=== PATIENT | female | born 1955 | race Caucasian/White ===

== ENCOUNTER 2019-08-14 14:17 | Emergency (ER) | payer OTHER, SELFPAY ==
[2019-08-14 14:20] VITALS: BP 154/102; PULSE 110; RESP 101; TEMP 36.6; O2SAT 96; BMI 21.2
[2019-08-14 16:09] VITALS: BP 153/115; PULSE 90; RESP 20; O2SAT 98
--- NOTE | 2019-08-14 17:17 | ED.GENADULT ---
HPI - General Adult <Suzanne Andrade PA-C - Last Filed: 08/14/19 21:01> General Chief complaint: Hypertension Stated complaint: elevated blood pressure, sent by doctor Time Seen by Provider: 08/14/19 17:10 Source: patient Mode of arrival: Ambulatory Limitations: no limitations History of Present Illness HPI narrative: This 64-year-old female states that she is feeling well, but was sent for evaluation by oral surgeon for elevated blood pressure noted in his office (unable to be seen by PCP and they initially sent to the walk-in clinic). She states initially her blood pressure was 159/104, then after discussing needed procedures and extractions was 209/120. She states her blood pressure has been in the 150/100 range at home recently however she has not taken it when she is relaxed. She states that she is monitoring this with her PCP and pain specialist. She states that she feels ?great? today, denies any chest pain, headache, vision change, vomiting or other new complaints today. She states that she does have anxiety and feels like her medication doesn't work as well as it could and thinks that could contribute Related Data Home Medications Medication Instructions Recorded Confirmed methadone 25 mg PO DAILY #0 06/11/11 08/14/19 hydrocodone-acetaminophen [[place]] 1 tab PO QID #0 tab 04/03/16 08/14/19 sertraline 100 mg PO QDAY #0 tab 04/03/16 08/14/19 Allergies Allergy/AdvReac Type Severity Reaction Status Date / Time No Known Drug Allergies Allergy Verified 08/14/19 14:32 Review of Systems <Suzanne Andrade PA-C - Last Filed: 08/14/19 21:01> Review of Systems ROS Unobtainable: All systems reviewed & are unremarkable except as noted in HPI and below Patient History <Suzanne Andrade PA-C - Last Filed: 08/14/19 21:01> Medical History (Updated 08/14/19 @ 18:38 by Suzanne Andrade PA-C) Anxiety disorder (Chronic) Degenerative disc disease (Chronic) Scoliosis (Chronic) Surgical History (Updated 08/14/19 @ 18:38 by Suzanne Andrade PA-C) No pertinent past surgical history (Chronic) Social History Smoking Status: Current every day smoker Smoking Status: Current every day smoker tobacco type: cigarettes alcohol intake frequency: 3 or more drinks per day Substance Use Type: marijuana Exam <Suzanne Andrade PA-C - Last Filed: 08/14/19 21:01> Narrative Exam Narrative: GENERAL APPEARANCE: Patient sitting comfortably, appears well. NECK/THYROID: Neck supple, no JVD. LUNGS: Clear to auscultation bilaterally. HEART: Regular rate and rhythm without murmur, normal S1, S2, no S3 or S4. EXTREMITIES: No cyanosis or edema NEUROLOGIC: Alert and oriented, normal speech, gait and coordination. Initial Vital Signs Initial Vital Signs: Vital Signs Temperature 97.9 F 08/14/19 14:20 Pulse Rate 110 H 08/14/19 14:20 Respiratory Rate 101 H 08/14/19 14:20 Blood Pressure 154/102 H 08/14/19 14:20 Pulse Oximetry 96 08/14/19 14:20 <Sun Deluca MD - Last Filed: 08/18/19 12:20> Initial Vital Signs Initial Vital Signs: Vital Signs Temperature 97.9 F 08/14/19 14:20 Pulse Rate 110 H 08/14/19 14:20 Respiratory Rate 101 H 08/14/19 14:20 Blood Pressure 154/102 H 08/14/19 14:20 Pulse Oximetry 96 08/14/19 14:20 Course <Suzanne Andrade PA-C - Last Filed: 08/14/19 21:01> Course Additional Information: Patient is feeling well today. She does have moderately elevated blood pressures, actually improved here in the department versus her home readings though she has not checked at rest. No proteinuria noted. Advised she needs to return if any new symptoms such as chest pain vision change, severe headache, etc. and she is agreeable. Otherwise advised check few home blood pressures when relaxed and follow-up with PCP next week and she is also agreeable with this plan. Orders Ordered: ED Orders 08/14/19 14:41 EKG-12 Lead Stat Vital Signs Vital signs: Vital Signs - 8 hr 08/14/19 14:20 08/14/19 16:09 08/14/19 17:19 Temperature 97.9 F Pulse Rate 110 H 90 87 Respiratory Rate 101 H 20 Blood Pressure 154/102 H Blood Pressure [Left Arm] 153/115 H 137/111 H Pulse Oximetry 96 98 98 08/14/19 17:32 Temperature Pulse Rate 89 Respiratory Rate Blood Pressure Blood Pressure [Left Arm] 175/99 H Pulse Oximetry 97 <Sun Deluca MD - Last Filed: 08/18/19 12:20> Orders Ordered: ED Orders 08/14/19 14:41 EKG-12 Lead Stat Vital Signs Vital signs: Vital Signs - 8 hr 08/14/19 14:20 08/14/19 16:09 08/14/19 17:19 Temperature 97.9 F Pulse Rate 110 H 90 87 Respiratory Rate 101 H 20 Blood Pressure 154/102 H Blood Pressure [Left Arm] 153/115 H 137/111 H Pulse Oximetry 96 98 98 08/14/19 17:32 Temperature Pulse Rate 89 Respiratory Rate Blood Pressure Blood Pressure [Left Arm] 175/99 H Pulse Oximetry 97 Medical Decision Making <Suzanne Andrade PA-C - Last Filed: 08/14/19 21:01> Lab Data Labs: Urine Dip Bedside Urine Glucose Negative Bedside Urine Bilirubin - Negative Bedside Urine Ketone - Negative Urine Specific [place] 1.010 Bedside Urine Occult Blood - Negative Bedside Urine pH 6.0 Bedside Urine Protein - Negative Bedside Urine Urobilinogen - Negative Bedside Urine Nitrite - Negative Bedside Urine Leukocytes - Negative Esterase Point of care testing: Urine Dip Bedside Urine Glucose Negative Bedside Urine Bilirubin - Negative Bedside Urine Ketone - Negative Urine Specific [place] 1.010 Bedside Urine Occult Blood - Negative Bedside Urine pH 6.0 Bedside Urine Protein - Negative Bedside Urine Urobilinogen - Negative Bedside Urine Nitrite - Negative Bedside Urine Leukocytes - Negative Esterase ECG Data Attestation: I personally reviewed and interpreted this ECG as follows: (Normal sinus rhythm, rate 96, left bundle branch block) <Sun Deluca MD - Last Filed: 08/18/19 12:20> Lab Data Labs: Urine Dip Bedside Urine Glucose Negative Bedside Urine Bilirubin - Negative Bedside Urine Ketone - Negative Urine Specific [place] 1.010 Bedside Urine Occult Blood - Negative Bedside Urine pH 6.0 Bedside Urine Protein - Negative Bedside Urine Urobilinogen - Negative Bedside Urine Nitrite - Negative Bedside Urine Leukocytes - Negative Esterase Point of care testing: Urine Dip Bedside Urine Glucose Negative Bedside Urine Bilirubin - Negative Bedside Urine Ketone - Negative Urine Specific [place] 1.010 Bedside Urine Occult Blood - Negative Bedside Urine pH 6.0 Bedside Urine Protein - Negative Bedside Urine Urobilinogen - Negative Bedside Urine Nitrite - Negative Bedside Urine Leukocytes - Negative Esterase Discharge Plan Departure Patient Disposition: Home Clinical Impression: Hypertension Qualifiers: Hypertension type: essential hypertension Qualified Code(s): I10 - Essential (primary) hypertension Discharge Date/Time: 08/14/19 18:41 Instructions: DI for High Blood Pressure Activity Restrictions/Additional Instructions: Your blood pressure here today appears to be equal or lower than what you have been seeing at home recently. I suspect your elevated reading at the oral surgeon was related to anxiety when you were told about the surgery that you would need. Since you are feeling well, you don't need any treatment right now, but as we talked about you should set up a follow-up visit with your primary care provider next week to review whether to start any blood pressure medication and whether adjusting or changing or anxiety medication could help with this. In the interim, please check a few blood pressures at home when you are seated and relaxed with your feet flat on the floor for at least 15 minutes. Check a few readings at different times of day before your next visit so you can review them with Dr. Araujo. As we talked about, you should return in the interim should you have any new symptoms such as severe headache, vision change, chest pain, etc.. Prescriptions: No Action methadone 10 MG tablet 25 mg PO DAILY Qty: 0 RF: 0 sertraline 100 MG tablet 100 mg PO QDAY Qty: 0 RF: 0 hydrocodone-acetaminophen [[place]] 10 MG/325 MG tablet 1 tab PO QID Qty: 0 RF: 0 Referrals: Edward Littlejohn MD [Non-Staff] -
[2019-08-14 17:19] VITALS: BP 137/111; PULSE 87; O2SAT 98
[2019-08-14 17:32] VITALS: BP 175/99; PULSE 89; O2SAT 97
== END 2019-08-14 18:41 | disposition home or self-care (01) ==
PROVIDERS: Emergency Provider Internal Medicine; Family Provider Family Medicine
DX: I10 Essential (primary) hypertension (principal); F41.9 Anxiety disorder, unspecified
CPT/HCPCS: 81003; 93005; 99283

== ENCOUNTER → 2019-09-01 10:15 | Outpatient (CLI) | payer OTHER, SELFPAY ==
[2019-09-01 10:54] LABS: Add Manual Diff / Slide Review NO; Basophils Absolute Auto 100 /uL (0-100); Basophils Percent Auto 1.1 % (0-2); Eosinophils Absolute Auto 100 /uL (0-450); Eosinophils Percent Auto 1.7 % (2-4); Lymphocytes Absolute Auto 1600 /uL (1100-4500); Lymphocytes Percent Auto 32.7 % (25-40); Mean Corpuscular HGB Conc 34.1 % (30-36); Mean Corpuscular Hemoglobin 31.6 PG (26-34); Mean Corpuscular Volume 92.6 fL (80-100); Monocytes Absolute Auto 400 /uL (0-900); Monocytes Percent Auto 8.5 % (3-14); Neutrophils Absolute Auto 2700 /uL (1500-7000); Platelet Count 331 X10^3/uL (150-400); Red Blood Cell Count 4.11 X10^6/uL (4.0-5.2); Red Cell Distribution Width 13.5 % (11.6-14.8); White Blood Cell Count 4.8 X10^3/uL (4.5-11.0)
[2019-09-01 11:27] LABS: Alanine Aminotransferase 10 IU/L (<35); Albumin 4.7 g/dL (3.5-5.0); Albumin Globulin Ratio 1.7 (1.0-2.8); Alkaline Phosphatase 68 U/L (38-126); Aspartate Aminotransferase 20 IU/L (14-36); BUN Creatinine Ratio 16.7 (6-22); Bilirubin Total 0.8 mg/dL (0.2-1.3); Blood Urea Nitrogen 10 mg/dL (7-17); Calcium 10.1 mg/dL (8.4-10.2); Carbon Dioxide 27 mmol/L (22-32); Chloride 97 mmol/L (98-107); Cholesterol 236 mg/dL (140-199); Estimated Glomerular Filt Rate > 60.0 mL/min (>60); Globulin 2.7 g/dL (1.7-4.1); Glucose 102 mg/dL (80-110); HDL Cholesterol 94 mg/dL (40-60); HEMOLYSIS < 15 (0-50); LDL Cholesterol Calculated 118 mg/dL (<100); Sodium 132 mmol/L (137-145); Total Protein 7.4 g/dL (6.3-8.2); Triglycerides 121 mg/dL (35-150)
[2019-09-01 11:57] LABS: Thyroid Stimulating Hormone 1.41 uIU/mL (0.47-4.68)
== END ==
PROVIDERS: Family Provider Family Medicine; PCP Family Medicine; Referring Provider Family Medicine; Visit Provider Family Medicine
DX: F41.9 Anxiety disorder, unspecified (principal); R03.0 Elevated blood-pressure reading, without diagnosis of hypertension; E78.5 Hyperlipidemia, unspecified
CPT/HCPCS: 36415; 80053; 80061; 84443; 85025

== ENCOUNTER → 2022-03-10 13:49 | Outpatient (CLI) | payer OTHER, SELFPAY ==
[2022-03-10 14:55] LABS: Add Manual Diff / Slide Review NO; Basophils Absolute Auto 0 /uL (0-100); Basophils Percent Auto 0.7 % (0-2); Eosinophils Absolute Auto 100 /uL (0-450); Eosinophils Percent Auto 2.1 % (2-4); Hematocrit 37.4 % (36-46); Hemoglobin 12.7 g/dL (12.0-16.0); Lymphocytes Absolute Auto 1500 /uL (1100-4500); Lymphocytes Percent Auto 22.6 % (25-40); Mean Corpuscular Hemoglobin 31.7 PG (26-34); Mean Corpuscular Volume 93.2 fL (80-100); Monocytes Absolute Auto 500 /uL (0-900); Monocytes Percent Auto 6.7 % (3-14); Neutrophils Absolute Auto 4500 /uL (1500-7000); Neutrophils Percent Auto 67.9 % (50-75); Platelet Count 301 X10^3/uL (150-400); Red Blood Cell Count 4.01 X10^6/uL (4.0-5.2); Red Cell Distribution Width 13.4 % (11.6-14.8); White Blood Cell Count 6.7 X10^3/uL (4.5-11.0)
[2022-03-10 15:44] LABS: Alanine Aminotransferase 12 IU/L (<35); Albumin 4.3 g/dL (3.5-5.0); Albumin Globulin Ratio 1.7 (1.0-2.8); Alkaline Phosphatase 75 U/L (38-126); Aspartate Aminotransferase 21 IU/L (14-36); BUN Creatinine Ratio 20.8 (6-22); Bilirubin Total 0.2 mg/dL (0.2-1.3); Blood Urea Nitrogen 15 mg/dL (7-17); Calcium 9.3 mg/dL (8.4-10.2); Carbon Dioxide 31 mmol/L (22-32); Chloride 100 mmol/L (98-107); Cholesterol 215 mg/dL (140-199); Estimated Glomerular Filt Rate > 60 mL/min (>60); Globulin 2.6 g/dL (1.7-4.1); Glucose 98 mg/dL (80-110); HDL Cholesterol 86 mg/dL (40-60); HEMOLYSIS < 15 (0-50); LDL Cholesterol Calculated 102 mg/dL (<100); Potassium 4.8 mmol/L (3.4-5.1); Sodium 135 mmol/L (137-145); Total Protein 6.9 g/dL (6.3-8.2); Triglycerides 137 mg/dL (35-150)
[2022-03-16 18:22] LABS: Vitamin D 25 Hydroxy (D3) 39.9 ng/mL (30.0-100.0)
[2022-03-18 16:49] LABS: 1,25-Dihydroxy, Vitamin D-2 <10 pg/mL (.)
== END ==
PROVIDERS: Family Provider Family Medicine; PCP Family Medicine; Referring Provider Family Medicine; Visit Provider Family Medicine
DX: I10 Essential (primary) hypertension (principal); R53.82 Chronic fatigue, unspecified
CPT/HCPCS: 36415; 80053; 80061; 82306; 82652; 84443; 85025

== ENCOUNTER → 2023-07-19 06:45 | Outpatient (CLI) | payer MEDICARE, SELFPAY | PROVIDERS: Family Provider Family Medicine; Referring Provider Internal Medicine Cardiovascular Disease; Visit Provider Internal Medicine Cardiovascular Disease | DX: R06.09 Other forms of dyspnea (principal); Z87.891 Personal history of nicotine dependence; J98.8 Other specified respiratory disorders | CPT/HCPCS: 94060; 94726; 94729 ==

== ENCOUNTER 2023-12-06 12:24 | Emergency (ER) | payer MEDICARE, SELFPAY ==
[2023-12-06 12:28] VITALS: BP 167/101; PULSE 100; RESP 18; TEMP 36.4; O2SAT 96; BMI 23.0
--- NOTE | 2023-12-06 12:35 | ED.SOB ---
HPI - SOB/Dyspnea <Wilson Serrano PA-C - Last Filed: 12/06/23 14:47> General Chief Complaint: Shortness of Breath/Dyspnea Stated Complaint: SOB Time Seen by Provider: 12/06/23 12:35 Source: patient Mode of arrival: Ambulatory History of Present Illness HPI Narrative: This is a 68-year-old female presents emergency department due to continued fatigue and shortness of breath. Patient states that this began about 6 weeks ago and she received antibiotics from her primary care provider about 4 weeks ago which she was taken which has cleared her infectious symptoms but she still reports continued fatigue and shortness of breath. She has been given to inhaler treatments medications but she was not been using the arm until yesterday. Denies any chest pain, nausea, vomiting, or any other concerning signs or symptoms. Related Data Home Medications Medication Instructions Recorded Confirmed methadone 10 mg tablet 25 mg PO DAILY ##0 06/11/11 03/29/23 hydrocodone 10 mg-acetaminophen 1 tab PO QID #0 tabs 04/03/16 03/29/23 325 mg tablet ([place]) sertraline 100 mg tablet 100 mg PO QDAY #0 tabs 04/03/16 03/29/23 amlodipine 5 mg tablet 5 mg PO DAILY 10/17/19 03/29/23 estradiol 0.01% (0.1 mg/gram) 2 g vaginal DAILY 03/29/23 03/29/23 vaginal cream fluticasone 250 mcg-salmeterol 50 1 ea inhalation BID 03/29/23 03/29/23 mcg/dose blistr powdr for inhalation (Advair Diskus) ipratropium 20 mcg-albuterol 100 1 puff inhalation 4XD 03/29/23 03/29/23 mcg/actuation mist for inhalation (Combivent Respimat) losartan 25 mg tablet 25 mg PO DAILY 03/29/23 03/29/23 Previous Rx's Medication Instructions Recorded alprazolam 0.25 mg tablet (Xanax) 0.25 mg PO DAILY #2 tabs 12/06/23 Allergies Allergy/AdvReac Type Severity Reaction Status Date / Time No Known Drug Allergies Allergy Verified 03/29/23 12:02 Review of Systems <Wilson Serrano PA-C - Last Filed: 12/06/23 14:47> Review of Systems Narrative: GENERAL: Reports fatigue Denies chills, , malaise, fever, sweats. HEENT: Denies sinus pain, ear pain, sore throat, difficulty swallowing, dizziness. RESPIRATORY: Reports shortness of breath Denies , cough, wheezing, hemoptysis, sputum. CARDIOVASCULAR: Denies chest pain, palpitations, orthopnea, edema, GASTROINTESTINAL: Denies nausea, vomiting, abdominal pain, diarrhea, constipation, melena. : Denies dysuria, frequency, incontinence, hematuria, urinary retention. MUSCULOSKELETAL: denies weakness, joint pain, or bony pain SKIN: Denies rash, skin lesions, or other NEUROLOGIC: Denies weakness, headache, numbness, change in speech, confusion, seizures, incoordination. PSYCHIATRIC: No concerning psychosocial issues. 12 point review of systems is negative except for those stated above Patient History <Wilson Serrano PA-C - Last Filed: 12/06/23 14:47> Medical History (Updated 12/06/23 @ 14:46 by Wilson Serrano PA-C) Scoliosis Degenerative disc disease Anxiety disorder Surgical History (Updated 08/14/19 @ 18:38 by Suzanne Andrade PA-C) No pertinent past surgical history Social History Smoking Status: Former smoker Smoking Status: Former smoker tobacco type: cigarettes alcohol intake frequency: 3 or more drinks per day Substance Use Type: marijuana and other Exam <Wilson Serrano PA-C - Last Filed: 12/06/23 14:47> Narrative Exam Narrative: GENERAL: Well-developed patient, in mild distress. HEAD: Atraumatic. Normocephalic. EYES: Pupils equal round and reactive. Extraocular motions intact. No scleral icterus. No injection or drainage. ENT: Nose without bleeding, purulent drainage. Throat without erythema, tonsillar hypertrophy or exudate. Airway patent. NECK: Trachea midline. Non tender EXTREMITIES: No edema or joint tenderness. NEURO: AOx3. SKIN: No rash or erythema of visible areas CARDIOVASCULAR: Regular rate and rhythm without murmurs, gallops, or rubs. RESPIRATORY: Clear to auscultation. Breath sounds equal bilaterally. No wheezes, rales, or rhonchi. GASTROINTESTINAL: Abdomen soft, non-tender, nondistended. BACK: Nontender without deformity or crepitance. No flank tenderness. Initial Vital Signs Initial Vital Signs: Vital Signs Temperature 97.5 F L 12/06/23 12:28 Pulse Rate 100 H 12/06/23 12:28 Respiratory Rate 18 12/06/23 12:28 Blood Pressure 167/101 H 12/06/23 12:28 Pulse Oximetry 96 12/06/23 12:28 Oxygen Delivery Method Room Air 12/06/23 12:28 <Celi Mccoy DO - Last Filed: 12/08/23 11:21> Initial Vital Signs Initial Vital Signs: Vital Signs Temperature 97.5 F L 12/06/23 12:28 Pulse Rate 100 H 12/06/23 12:28 Respiratory Rate 18 12/06/23 12:28 Blood Pressure 167/101 H 12/06/23 12:28 Pulse Oximetry 96 12/06/23 12:28 Oxygen Delivery Method Room Air 12/06/23 12:28 Course <Wilson Serrano PA-C - Last Filed: 12/06/23 14:47> Orders Ordered: ED Orders 12/06/23 12:51 XR chest 2V Stat EKG-12 Lead Stat 12/06/23 12:54 Respiratory Panel (Film Array) Stat 12/06/23 13:15 D Dimer Stat NT-proBNP (BNP-Adult 18+) Stat Troponin & CK Cardiac Panel Stat Vital Signs Vital signs: Vital Signs - 8 hr 12/06/23 12:28 12/06/23 13:06 12/06/23 14:34 Temperature 97.5 F L Pulse Rate 100 H 99 H 92 H Respiratory Rate 18 18 Blood Pressure 167/101 H Pulse Oximetry 96 96 92 Oxygen Delivery Method Room Air Room Air <Celi Mccoy DO - Last Filed: 12/08/23 11:21> Orders Ordered: ED Orders 12/06/23 12:51 XR chest 2V Stat EKG-12 Lead Stat 12/06/23 12:54 Respiratory Panel (Film Array) Stat 12/06/23 13:15 D Dimer Stat NT-proBNP (BNP-Adult 18+) Stat Troponin & CK Cardiac Panel Stat Vital Signs Vital signs: Vital Signs - 8 hr 12/06/23 12:28 12/06/23 13:06 12/06/23 14:34 Temperature 97.5 F L Pulse Rate 100 H 99 H 92 H Respiratory Rate 18 18 Blood Pressure 167/101 H Pulse Oximetry 96 96 92 Oxygen Delivery Method Room Air Room Air MDM - SOB/Dyspnea <Wilson Serrano PA-C - Last Filed: 12/06/23 14:47> Lab Data Labs: Lab Results 12/06/23 12/06/23 Range/Units 12:54 13:15 D-Dimer < 215 (<500) ng/ml Total Creatine Kinase 42 (30-135) U/L Troponin I < 0.012 (0.01-0.034) ng/mL NT-Pro-B Natriuret Pep 174 H (<125) pg/mL Chlamy pneumoniae PCR Not detected (Not Detect) Adenovirus (PCR) Not detected (Not Detect) B.parapertussis DNA PCR Not detected (Not Detecte) Coronavirus OC43 (PCR) Not detected (Not Detect) Coronavirus HKU1 (PCR) Not detected (Not Detect) Coronavirus 229E (PCR) Not detected (Not Detect) SARS-CoV-2 (PCR) Not detected (Not Detecte) Coronavirus NL63 (PCR) Not detected (Not Detect) Human Metapneumovir PCR Not detected (Not Detect) Influenza Type A (PCR) Not detected (Not Detect) Influenza Type B (PCR) Not detected (Not Detect) M. pneumoniae (PCR) Not detected (Not Detect) Parainfluenza 1 (PCR) Not detected (Not Detect) Parainfluenza 2 (PCR) Not detected (Not Detect) Parainfluenza 3 (PCR) Not detected (Not Detect) Parainfluenza 4 (PCR) Not detected (Not Detect) RSV (PCR) Not detected (Not Detect) Entero/Rhino (PCR) Not detected (Not Detect) Imaging Data Extremity x-ray #1: Radiologist's Impression: [address] [address] XRay Report Signed Patient: Latoya Estevez MR#: [id number] : 1955 Acct:[id number] Age/Sex: 68 / F Date of Service: 12/06/23 Loc: ED Accession Number: [id number] Procedure: XR chest 2V Ordering Provider: Wilson Serrano P.A-C PROCEDURE: XR CHEST 2V INDICATIONS: shortness of breath TECHNIQUE: 2 views of the chest were acquired. COMPARISON: [facility], CR, XR CHEST 2 VIEWS, 11/08/2023, 11:05. FINDINGS: Surgical changes and devices: None. Lungs and pleura: Lungs are clear. No pleural effusions or pneumothorax. Mediastinum: Mediastinal contours are normal. Heart size is normal. Bones and chest wall: No suspicious bony abnormalities. Soft tissues appear unremarkable. Scoliotic curvature. IMPRESSION: No acute pulmonary process. Dictated by: Jenna Bolanos M.D. on 12/06/2023 at 13:26 Approved by: Jenna Bolanos M.D. on 12/06/2023 at 13:27 ECG Data Interpretation: EKG is normal sinus rhythm rate 91 beats per minute and free of any signs of ischemia or ectopy. No ST segmental elevation or depression. No T wave inversions. Left bundle branch block which is chronic for the patient MDM Narrative Medical decision making narrative: ED course: This is a 68-year-old female presents to the emergency department due to continued fatigue and shortness of breath for the last 4 weeks. Her cardiac workup today was unremarkable although she did show a left bundle-branch block which she sees Cardiology for and is well aware of. Troponin and BNP showed no significant abnormalities, BNP slightly elevated, maybe age-related. Lung sounds clear. Chest x-ray and respiratory panel negative for Miryam's well. Suspect her body is recovering after the suspected bacterial infection she had about 6 weeks ago. Recommended supportive care. Patient has been prescribed a maintenance steroid inhaler which she was not been using an recommended she continue to use that. During the very end of the encounter patient requested to Xanax that she was a chronic history of anxiety and is going to a this weekend. Xanax prescribed. CC: Shortness of breath Complicating co-morbidities: History of anxiety Data collected from: Previous notes Medical records reviewed: Patient was last seen here 4 years ago due to anxiety. History of anxiety, degenerative disc disease, scoliosis. Everyday smoker. Had moderately elevated blood pressures but no end-organ damage. Patient was discharged. Differential considered, but not limited to: ACS, anxiety, post viral syndrome Exam documented above, pertinent findings include: No concerning findings on exam Lab Test results independently reviewed as above. Pertinent findings: As above, no significant abnormalities Imaging studies independently reviewed: Chest x-ray unremarkable Scores Used: None MIPS Elements: None Consultations: None Treatments: None Re-evaluations: None Discussion: Discussed plan with the patient was comfortable with the plan Diagnosis: Postinfectious symptoms Disposition: see below, along with detailed discharge instructions that have been reviewed with patient as well as indications for ED re-evaluation and additional outpatient follow up <Celi Mccoy, DO - Last Filed: 12/08/23 11:21> Lab Data Labs: Lab Results 12/06/23 12/06/23 Range/Units 12:54 13:15 D-Dimer < 215 (<500) ng/ml Total Creatine Kinase 42 (30-135) U/L Troponin I < 0.012 (0.01-0.034) ng/mL NT-Pro-B Natriuret Pep 174 H (<125) pg/mL Chlamy pneumoniae PCR Not detected (Not Detect) Adenovirus (PCR) Not detected (Not Detect) B.parapertussis DNA PCR Not detected (Not Detecte) Coronavirus OC43 (PCR) Not detected (Not Detect) Coronavirus HKU1 (PCR) Not detected (Not Detect) Coronavirus 229E (PCR) Not detected (Not Detect) SARS-CoV-2 (PCR) Not detected (Not Detecte) Coronavirus NL63 (PCR) Not detected (Not Detect) Human Metapneumovir PCR Not detected (Not Detect) Influenza Type A (PCR) Not detected (Not Detect) Influenza Type B (PCR) Not detected (Not Detect) M. pneumoniae (PCR) Not detected (Not Detect) Parainfluenza 1 (PCR) Not detected (Not Detect) Parainfluenza 2 (PCR) Not detected (Not Detect) Parainfluenza 3 (PCR) Not detected (Not Detect) Parainfluenza 4 (PCR) Not detected (Not Detect) RSV (PCR) Not detected (Not Detect) Entero/Rhino (PCR) Not detected (Not Detect) ECG Data Interpretation: EKG is normal sinus rhythm rate 91 beats per minute and free of any signs of ischemia or ectopy. No ST segmental elevation or depression. No T wave inversions. Left bundle branch block which is chronic for the patient [place] 12/06/2023: Sinus rhythm, left atrial enlargement left bundle-branch block. Discharge Plan Departure Patient Disposition: Home Clinical Impression: Post-infection fatigue Activity Restrictions/Additional Instructions: Thank you for coming to the [facility] Emergency Department today. As we discussed your cardiac exam and workup were reassuring. There was no evidence of any kind of ?heart attack?. Your chest x-ray also showed no evidence of pneumonia or other lung abnormalities. Your respiratory panel came back negative as well. I suspect the shortness of breath and fatigue you are feeling maybe due to your postinfectious symptoms. Please use the inhalers that you have been prescribed. Please return to the emergency department if you develop any significant new chest pain, severe shortness of breath, or any other concerning signs or symptoms. I hope you feel better soon. Please follow up with your primary care provider within a week if your symptoms continue. If you do not have a primary care provider please contact the [facility] Resource line at [phone]. They will ask some questions about your medical history and help you get set up with a provider in the community. Prescriptions: New alprazolam [Xanax] 0.25 mg tablet 0.25 mg PO DAILY Qty: 2 0RF No Action amlodipine 5 mg tablet 5 mg PO DAILY estradiol 0.01 % (0.1 mg/gram) cream 2 g vaginal DAILY Combivent Respimat 20-100 mcg/actuation mist 1 puff inhalation 4XD fluticasone propion-salmeterol [Advair Diskus] 250-50 mcg/dose blister with device 1 ea inhalation BID losartan 25 mg tablet 25 mg PO DAILY methadone 10 MG tablet 25 mg PO DAILY Qty: 0 sertraline 100 MG tablet 100 mg PO QDAY Qty: 0 hydrocodone-acetaminophen [[place]] 10 MG/325 MG tablet 1 tab PO QID Qty: 0 Referrals: Ana Rosa Cooper MD [Primary Care Provider] - Stand Alone Forms: Patient Portal/API ED Sign-out <Celi Mccoy DO - Last Filed: 12/08/23 11:21> Cosign ED Attending [place]gr[place] Attestation: I was immediately available in the department for consultation.
--- NOTE | 2023-12-06 12:51 | DI.RAD.S_ITS ---
PROCEDURE: XR CHEST 2V INDICATIONS: shortness of breath TECHNIQUE: 2 views of the chest were acquired. COMPARISON: [facility], CR, XR CHEST 2 VIEWS, 11/08/2023, 11:05. FINDINGS: Surgical changes and devices: None. Lungs and pleura: Lungs are clear. No pleural effusions or pneumothorax. Mediastinum: Mediastinal contours are normal. Heart size is normal. Bones and chest wall: No suspicious bony abnormalities. Soft tissues appear unremarkable. Scoliotic curvature. IMPRESSION: No acute pulmonary process. Dictated by: Jenna Bolanos M.D. on 12/06/2023 at 13:26 Approved by: Jenna Bolanos M.D. on 12/06/2023 at 13:27
[2023-12-06 13:06] VITALS: PULSE 99; RESP 18; O2SAT 96
--- NOTE | 2023-12-06 13:13 | PC.NURSE ---
PT reports I didnt know I'm supposed to take my inhalers daily, I started taking them daily 2 days ago. Pt has prescribed advair and combivent. Pt was seen by PCP and given sulfameth/tri 800/160 and prednisone 40mg 4x daily and has completed both prescriptions. She reports feeling better since the medications, but still reports SOB and fatigue. Cough resolved, denies having any pain.
[2023-12-06 13:31] LABS: D Dimer < 215 ng/ml (<500)
[2023-12-06 14:00] LABS: Creatine Kinase 42 U/L (30-135)
[2023-12-06 14:01] LABS: Adenovirus Not Detected (Not Detect); B. parapertussis Not Detected (Not Detecte); Bordetella pertussis Not Detected (Not Detect); Chlamydophila pneumoniae Not Detected (Not Detect); Coronavirus 229E Not Detected (Not Detect); Coronavirus HKU1 Not Detected (Not Detect); Coronavirus NL 63 Not Detected (Not Detect); Coronavirus OC43 Not Detected (Not Detect); Human Metapneumovirus Not Detected (Not Detect); Human Rhinovirus/Enterovirus Not Detected (Not Detect); Influenza A Not Detected (Not Detect); Influenza B Not Detected (Not Detect); Mycoplasma pneumoniae Not Detected (Not Detect); Parainfluenza Virus 1 Not Detected (Not Detect); Parainfluenza Virus 2 Not Detected (Not Detect); Parainfluenza Virus 3 Not Detected (Not Detect); Parainfluenza Virus 4 Not Detected (Not Detect); Respiratory Syncytial Virus Not Detected (Not Detect); SARS- CoV-2 Not Detected (Not Detecte)
[2023-12-06 14:13] LABS: NT-proBNP (BNP-Adult 18+) 174 pg/mL (<125); Troponin I < 0.012 ng/mL (0.01-0.034)
[2023-12-06 14:34] VITALS: PULSE 92; O2SAT 92
[2023-12-06 14:54] VITALS: BP 134/86; PULSE 91; RESP 18; O2SAT 93
== END 2023-12-06 14:56 | disposition home or self-care (01) ==
PROVIDERS: Emergency Provider Physician Assistant Medical; Family Provider Family Medicine; PCP Family Medicine
DX: R53.83 Other fatigue (principal); I44.7 Left bundle-branch block, unspecified; Z20.822 Contact with and (suspected) exposure to COVID-19
CPT/HCPCS: 36415; 71046; 82550; 83880; 84484; 85379; 87633; 93005; 93010; 99283; 99284

== ENCOUNTER 2024-01-13 10:48 | Emergency (ER) | payer MEDICARE, SELFPAY ==
[2024-01-13 11:21] VITALS: BP 165/92; PULSE 105; RESP 16; TEMP 36.6; O2SAT 95; BMI 23.3
--- NOTE | 2024-01-13 11:28 | DI.RAD.S_ITS ---
PROCEDURE: XR FOOT LT MIN 3V INDICATIONS: fall TECHNIQUE: 3 views of the foot were acquired. COMPARISON: None. FINDINGS: Bones: There are mildly displaced fracture seen involving the proximal aspects of the 3rd and 4th metatarsals. No definite intra-articular involvement can be seen. No suspicious bony lesions. Mild hallux valgus deformity is seen, with associated focal degenerative change of the 1st metatarsophalangeal joint. Milder degenerative changes are seen elsewhere, including along the Lisfranc joint. Soft tissues: Distal soft tissue swelling is seen. IMPRESSION: Mildly displaced fractures of the proximal 3rd and 4th metatarsals. If it would be helpful for clinical management decision making in this patient with this given history, please consider a dedicated foot CT for further evaluation. Hallux valgus deformity and underlying degenerative changes noted. Dictated by: Kiran Espino M.D. on 01/13/2024 at 10:51 Approved by: Kiran Espino M.D. on 01/13/2024 at 10:52
--- NOTE | 2024-01-13 11:31 | PC.NURSE ---
Pt reports fall was mechanical.
--- NOTE | 2024-01-13 12:40 | ED_ITS ---
HPI - Extremity Injury (Lower) General Chief Complaint: Extremity Injury, Lower Stated Complaint: poss sprained or broken lt foot Time Seen by Provider: 01/13/24 11:36 History of Present Illness HPI Narrative: 68-year-old female presents for left foot pain and swelling. Last night when she was walking her foot got caught between objects and was folded forward. She has not been able to bear weight on it today. Related Data Home Medications Medication Instructions Recorded Confirmed methadone 10 mg tablet 25 mg PO DAILY ##0 06/11/11 12/13/23 hydrocodone 10 mg-acetaminophen 1 tab PO QID #0 tabs 04/03/16 12/13/23 325 mg tablet (Preston) amlodipine 5 mg tablet 5 mg PO DAILY 10/17/19 12/13/23 estradiol 0.01% (0.1 mg/gram) 2 g vaginal DAILY 03/29/23 12/13/23 vaginal cream fluticasone 250 mcg-salmeterol 50 1 ea inhalation BID 03/29/23 12/13/23 mcg/dose blistr powdr for inhalation (Advair Diskus) ipratropium 20 mcg-albuterol 100 1 puff inhalation 4XD 03/29/23 12/13/23 mcg/actuation mist for inhalation (Combivent Respimat) losartan 25 mg tablet 25 mg PO DAILY 03/29/23 12/13/23 sertraline 100 mg tablet 50 mg PO QDAY #0 tabs 12/13/23 12/13/23 Previous Rx's Medication Instructions Recorded albuterol sulfate 90 mcg/actuation 2 puff inhalation Q6H PRN 12/13/23 aerosol inhaler shortness of breath or wheezing #6.7 grams tiotropium 2.5 mcg-olodaterol 2.5 2 puff inhalation DAILY #4 grams 12/13/23 mcg/actuation mist for inhalation (Stiolto Respimat) umeclidinium 62.5 mcg-vilanterol 1 inh inhalation DAILY #60 ea 12/18/23 25 mcg/actuation powdr for inhalation (Anoro Ellipta) Allergies Allergy/AdvReac Type Severity Reaction Status Date / Time No Known Drug Allergies Allergy Verified 01/13/24 11:26 Patient History Medical History Scoliosis Degenerative disc disease Anxiety disorder Surgical History No pertinent past surgical history Social History Smoking Status: Former smoker Smoking Status: Former smoker tobacco type: cigarettes alcohol intake frequency: 3 or more drinks per day Substance Use Type: marijuana and other Exam Initial Vital Signs Initial Vital Signs: Vital Signs Temperature 97.9 F 01/13/24 11:21 Pulse Rate 105 H 01/13/24 11:21 Respiratory Rate 16 01/13/24 11:21 Blood Pressure 165/92 H 01/13/24 11:21 Pulse Oximetry 95 01/13/24 11:21 Oxygen Delivery Method Room Air 01/13/24 11:21 Const: Awake, alert, no acute distress, nontoxic appearing MSK: Tenderness to palpation anterior mid left foot, palpable pulses, able to wiggle toes, capillary refill less than 2 seconds Skin: Warm, Dry, intact, no rashes Neuro: AO x3, CN II-XII grossly intact, moves all extremities Course Orders Ordered: ED Orders 01/13/24 11:28 XR foot LT min 3V Stat Vital Signs Vital signs: Vital Signs - 8 hr 01/13/24 11:21 Temperature 97.9 F Pulse Rate 105 H Respiratory Rate 16 Blood Pressure 165/92 H Pulse Oximetry 95 Oxygen Delivery Method Room Air MDM - Extremity Injury (Lower) Differential Diagnosis Differential diagnosis: Likely ankle sprain and strain, puncture wound of foot and fracture of toe Imaging Data Extremity x-ray #1: Radiologist's Impression: PROCEDURE: XR FOOT LT MIN 3V INDICATIONS: fall TECHNIQUE: 3 views of the foot were acquired. COMPARISON: None. FINDINGS: Bones: There are mildly displaced fracture seen involving the proximal aspects of the 3rd and 4th metatarsals. No definite intra-articular involvement can be seen. No suspicious bony lesions. Mild hallux valgus deformity is seen, with associated focal degenerative change of the 1st metatarsophalangeal joint. Milder degenerative changes are seen elsewhere, including along the Lisfranc joint. Soft tissues: Distal soft tissue swelling is seen. IMPRESSION: Mildly displaced fractures of the proximal 3rd and 4th metatarsals. If it would be helpful for clinical management decision making in this patient with this given history, please consider a dedicated foot CT for further evaluation. Hallux valgus deformity and underlying degenerative changes noted. Dictated by: Kiran Espino M.D. on 01/13/2024 at 10:51 Approved by: Kiran Espino M.D. on 01/13/2024 at 10:52 [facility] Narrative Medical decision making narrative: Foot pain after flexion injury. X-rays show 3rd and 4th metatarsal fracture. Patient placed in orthopedic shoe and given crutches for ambulatory support. Counseled on diagnosis as well as importance of orthopedic follow up. Patient offered pain medications, however she states that she has plenty of pain medications at home. Discharge Plan Departure Patient Disposition: Home Clinical Impression: Metatarsal stress fracture of left foot Qualifiers: Encounter type: initial encounter Qualified Code(s): M84.375A - Stress fracture, left foot, initial encounter for fracture Instructions: DI for Foot Fracture Activity Restrictions/Additional Instructions: WEAR THE STIFF-SOLED SHOE WHENEVER YOU WERE AMBULATING. YOU MAY PROGRESS TO WEIGHT-BEARING TOLERATED. CRUTCHES HAVE BEEN PROVIDED TO HELP IF YOU ARE UNABLE TO BEAR WEIGHT. PLEASE MAKE SURE THAT YOU FOLLOW UP WITH ORTHOPEDIC SURGERY, A REFERRAL WAS PROVIDED IN YOUR PAPERWORK. ELEVATE YOUR EXTREMITY ABOVE HEART LEVEL TO HELP DECREASE SWELLING. APPLY ICE NEEDED FOR COMFORT. Prescriptions: No Action amlodipine 5 mg tablet 5 mg PO DAILY estradiol 0.01 % (0.1 mg/gram) cream 2 g vaginal DAILY Combivent Respimat 20-100 mcg/actuation mist 1 puff inhalation 4XD fluticasone propion-salmeterol [Advair Diskus] 250-50 mcg/dose blister with device 1 ea inhalation BID losartan 25 mg tablet 25 mg PO DAILY methadone 10 MG tablet 25 mg PO DAILY Qty: 0 hydrocodone-acetaminophen [Preston] 10 MG/325 MG tablet 1 tab PO QID Qty: 0 sertraline 100 mg tablet 50 mg PO QDAY Qty: 0 Anoro Ellipta 62.5-25 mcg/actuation blister with device 1 inh inhalation DAILY Qty: 60 3RF Stiolto Respimat 2.5-2.5 mcg/actuation mist 2 puff inhalation DAILY Qty: 4 6RF albuterol sulfate 90 mcg/actuation HFA aerosol inhaler 2 puff inhalation Q6H PRN (Reason: shortness of breath or wheezing) Qty: 6.7 6RF Referrals: Ana Rosa Cooper MD [Primary Care Provider] - Michelle Conway MD [Physician] - Stand Alone Forms: Patient Portal/API
== END 2024-01-13 13:18 | disposition home or self-care (01) ==
PROVIDERS: Emergency Provider Emergency Medicine; Family Provider Family Medicine; PCP Family Medicine
DX: M84.375A Stress fracture, left foot, initial encounter for fracture (principal)
CPT/HCPCS: 73630; 99281; 99283

== ENCOUNTER → 2024-01-16 10:45 | Outpatient (CLI) | payer MEDICARE, SELFPAY ==
--- NOTE | 2024-01-16 10:48 | DI.CT.S_ITS ---
PROCEDURE: CT LE LT W CON INDICATIONS: LT FOOT INJ, INIT XR MT 2,3 FX/? DISPLACEMENT TECHNIQUE: Noncontrast 1-1.5 mm axial sections acquired from above the tibiotalar joint to the bottom of the calcaneus, with coronal and sagittal reformats. For radiation dose reduction, the following was used: automated exposure control, adjustment of mA and/or kV according to patient size. COMPARISON: [facility], CR, XR FOOT LT MIN 3V, 01/13/2024, 11:27. FINDINGS: Image quality: Excellent. Bones: Comminuted mildly displaced intra-articular fracture at the plantar aspect of the 1st metatarsal base with depression of the articular surface measuring up to 4 mm. Minimally displaced and comminuted fractures are again seen at the 3rd and 4th metatarsal bases. No definite intraosseous extension is seen. Questionable nondisplaced fracture at the lateral aspect second metatarsal base. Small nondisplaced fracture at the anterior medial aspect of the 1st cuneiform near the insertion of the dorsal component of the Lisfranc ligament. No widening of the first intermetatarsal distance. Tiny minimally displaced fracture fragment is also seen at the distal lateral portion of the 2nd cuneiform. No definite additional osseous fracture identified. No osteochondral lesion of the talar dome. Minimal forefoot osteoarthrosis. Small posterior and plantar calcaneal enthesophytes. Soft tissues: Soft tissue edema is seen throughout the dorsum of the foot. The articular cartilages, ligaments, tendons are not well evaluated with CT. The foot musculature is normal in bulk. IMPRESSION: 1. Comminuted mildly impacted intra-articular fracture at the 1st metatarsal base with up to 4 mm step-off at the articular surface. 2. Minimal displaced comminuted extra-articular fractures of the 3rd and 4th metatarsal bases. Questionable nondisplaced fracture at the lateral 2nd metatarsal base. 3. Tiny nondisplaced fractures at the distal lateral aspects of the 1st and 2nd cuneiforms. Approved by: Rodney Montoya M.D. on 01/16/2024 at 15:33
== END ==
PROVIDERS: Family Provider Family Medicine; PCP Family Medicine; Referring Provider Podiatrist; Visit Provider Podiatrist
DX: S92.322A Displaced fracture of second metatarsal bone, left foot, initial encounter for closed fracture (principal); S92.312A Displaced fracture of first metatarsal bone, left foot, initial encounter for closed fracture; S92.335A Nondisplaced fracture of third metatarsal bone, left foot, initial encounter for closed fracture; S92.345A Nondisplaced fracture of fourth metatarsal bone, left foot, initial encounter for closed fracture; X58.XXXA Exposure to other specified factors, initial encounter
CPT/HCPCS: 73700

== ENCOUNTER → 2024-12-09 08:27 | Outpatient (CLI) | payer MEDICARE, SELFPAY ==
[2024-12-09 09:22] LABS: Add Manual Diff / Slide Review NO; Basophils Absolute Auto 0 /uL (0-100); Basophils Percent Auto 0.8 % (0-2); Eosinophils Absolute Auto 200 /uL (0-450); Eosinophils Percent Auto 2.9 % (2-4); Hematocrit 37.2 % (36-46); Hemoglobin 12.7 g/dL (12.0-16.0); Lymphocytes Absolute Auto 1600 /uL (1100-4500); Lymphocytes Percent Auto 28.3 % (25-40); Mean Corpuscular Hemoglobin 31.1 PG (26-34); Mean Corpuscular Volume 91.3 fL (80-100); Monocytes Absolute Auto 400 /uL (0-900); Monocytes Percent Auto 6.5 % (3-14); Neutrophils Absolute Auto 3400 /uL (1500-7000); Neutrophils Percent Auto 61.5 % (50-75); Platelet Count 297 X10^3/uL (150-400); Red Blood Cell Count 4.08 X10^6/uL (4.0-5.2); Red Cell Distribution Width 13.4 % (11.6-14.8); White Blood Cell Count 5.6 X10^3/uL (4.5-11.0)
[2024-12-09 09:31] LABS: Hemoglobin A1C% w Est Avg Glu 5.2 % (4.0-6.0)
[2024-12-09 09:33] LABS: Alanine Aminotransferase 16 IU/L (<35); Albumin 4.7 g/dL (3.5-5.0); Albumin Globulin Ratio 2.2 (1.0-2.8); Alkaline Phosphatase 56 U/L (38-126); Aspartate Aminotransferase 22 IU/L (14-36); BUN Creatinine Ratio 20.6 (6-22); Bilirubin Total 0.6 mg/dL (0.2-1.3); Blood Urea Nitrogen 13 mg/dL (7-17); Calcium 9.5 mg/dL (8.4-10.2); Carbon Dioxide 25 mmol/L (22-32); Chloride 99 mmol/L (98-107); Cholesterol 252 mg/dL (140-199); Estimated Glomerular Filt Rate > 60 mL/min (>60); Globulin 2.1 g/dL (1.7-4.1); Glucose 101 mg/dL (70-99); HDL Cholesterol 70 mg/dL (40-60); HEMOLYSIS < 15 (0-50); LDL Cholesterol Calculated 148 mg/dL (<100); Potassium 4.7 mmol/L (3.4-5.1); Sodium 133 mmol/L (137-145); Total Protein 6.8 g/dL (6.3-8.2); Triglycerides 168 mg/dL (35-150)
[2024-12-09 09:59] LABS: Thyroid Stimulating Hormone 1.95 uIU/mL (0.47-4.68)
[2024-12-09 10:19] LABS: Vitamin B12 599 pg/mL (239-931)
== END ==
LOC: LAB 08:32
PROVIDERS: Family Provider Family Medicine; PCP Family Medicine; Referring Provider Family Medicine; Visit Provider Family Medicine
DX: I10 Essential (primary) hypertension (principal); Z13.1 Encounter for screening for diabetes mellitus; Z13.220 Encounter for screening for lipoid disorders; R53.82 Chronic fatigue, unspecified
CPT/HCPCS: 36415; 80053; 80061; 82306; 82607; 83036; 84439; 84443; 85025

== ENCOUNTER 2025-04-15 11:51 | Emergency (ER) | payer MEDICARE, SELFPAY ==
[2025-04-15] VITALS (12 sets, daily range): BP systolic 145–162; BP diastolic 95–122; PULSE 97–118; RESP 12–34; TEMP 36.9; O2SAT 93–97; BMI 23.0
--- NOTE | 2025-04-15 11:59 | DI.RAD.S_ITS ---
PROCEDURE: XR CHEST 1V INDICATIONS: Shortness of breath TECHNIQUE: One view of the chest was acquired. COMPARISON: [facility], CT, CT LOW DOSE LUNG CA SCREENING, 01/01/2025, 10:40. [facility], CR, XR CHEST 2V, 12/06/2023, 12:52. FINDINGS: Surgical changes and devices: None. Lungs and pleura: Lungs are clear. No pleural effusions or pneumothorax. Mediastinum: The cardiac contours are within normal limits. The aorta demonstrates calcification and tortuosity. Bones and chest wall: No suspicious bony lesions. S-shaped scoliotic curvature is seen. Age-appropriate bony degenerative changes are seen. Overlying soft tissues appear unremarkable. IMPRESSION: No acute portable chest abnormality is seen. Dictated by: Kiran Espino M.D. on 04/15/2025 at 11:31 Approved by: Kiran Espino M.D. on 04/15/2025 at 11:32
--- NOTE | 2025-04-15 11:59 | EKG_ITS ---
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
--- NOTE | 2025-04-15 12:32 | PC.NURSE ---
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 States she is not improving, generally wiped out. Denies fevers. Reports shortness or breath at all times but worse with exertion. Using a nebulizer at times at home with minimal change. Reports an overall heaviness in her chest. Denies nausea or sweating.
[2025-04-15 12:35] LABS: Add Manual Diff / Slide Review NO; Hematocrit 39.2 % (36-46); Hemoglobin 13.4 g/dL (12.0-16.0); Lymphocytes Absolute Auto 900 /uL (1100-4500); Mean Corpuscular HGB Conc 34.2 % (30-36); Mean Corpuscular Hemoglobin 30.2 PG (26-34); Mean Corpuscular Volume 88.4 fL (80-100); Platelet Count 289 X10^3/uL (150-400)
[2025-04-15 12:45] LABS: INR 0.9 (0.9-1.3); Prothrombin Time 10.5 SECONDS (9.4-12.5)
[2025-04-15 12:49] LABS: Alanine Aminotransferase 14 IU/L (<35); Albumin 5.0 g/dL (3.5-5.0); Albumin Globulin Ratio 1.7 (1.0-2.8); Alkaline Phosphatase 87 U/L (38-126); Blood Urea Nitrogen 12 mg/dL (7-17); Calcium 9.8 mg/dL (8.4-10.2); Carbon Dioxide 21 mmol/L (22-32); Chloride 97 mmol/L (98-107); Estimated Glomerular Filt Rate > 60 mL/min (>60); Globulin 3.0 g/dL (1.7-4.1); Glucose 98 mg/dL (70-99); HEMOLYSIS < 15 (0-50); Potassium 4.3 mmol/L (3.4-5.1); Sodium 130 mmol/L (137-145); Total Protein 8.0 g/dL (6.3-8.2)
[2025-04-15 12:50] LABS: Lactate (Lactic Acid) 0.9 mmol/L (0.7-2.1)
[2025-04-15 13:01] LABS: NT-proBNP (BNP-Adult 18+) 259 pg/mL (<125); Troponin I < 0.012 ng/mL (0.01-0.034)
--- NOTE | 2025-04-15 15:19 | ED.SOB ---
HPI - SOB/Dyspnea General Chief Complaint: Shortness of Breath/Dyspnea Stated Complaint: SOB, has lung infection Time Seen by Provider: 04/15/25 13:48 Source: patient Mode of arrival: Ambulatory Limitations: no limitations History of Present Illness HPI Narrative: This is a 69-year-old female here with shortness of breath. She has a nonproductive cough and her chest feels ?tight? has felt that way for about 3 weeks. Has a history of COPD and is followed by Pulmonary. Was seen in the pulmonary clinic on 27 March started on azithromycin and a steroid pulse. Reports her breathing got better but never completely normalized. She is not having nausea or vomiting or fevers she does not have a sore throat. Has been short of breath pretty much since then. Past medical history includes COPD and coronary disease, she is followed by Dr. Wilkes and saw him recently. Related Data Home Medications ?Medication ?Instructions ?Recorded ?Confirmed hydrocodone 10 mg-acetaminophen 1 tab PO QID #0 tabs 04/03/16 03/27/25 325 mg tablet (Blodgett) ipratropium 20 mcg-albuterol 100 1 puff inhalation 4XD 03/29/23 03/27/25 mcg/actuation mist for inhalation (Combivent Respimat) losartan 25 mg tablet 25 mg PO DAILY 03/29/23 03/27/25 Previous Rx's ?Medication ?Instructions ?Recorded fluticasone fur. 200 mcg-umeclid 1 inh inhalation DAILY #60 ea 03/27/25 62.5 mcg-vilant 25 mcg inhalat.powder (Trelegy Ellipta) prednisone 20 mg tablet 40 mg (2 x 20 mg) PO DAILY #10 tabs 03/27/25 prednisone 10 mg tablet 10 mg PO DIRECTED #30 tabs 04/15/25 Allergies Allergy/AdvReac Type Severity Reaction Status Date / Time codeine Allergy ITCHING Verified 04/15/25 11:54 Patient History Medical History (Updated 04/15/25 @ 16:25 by Augie Rico MD) COPD exacerbation Scoliosis Degenerative disc disease Anxiety disorder Surgical History No pertinent past surgical history Social History Smoking Status: Former smoker Smoking Status: Former smoker tobacco type: cigarettes alcohol intake frequency: 3 or more drinks per day Alcohol type: beer Exam Initial Vital Signs Initial Vital Signs: Vital Signs Temperature 98.4 F 04/15/25 11:53 Pulse Rate 110 H 04/15/25 11:53 Respiratory Rate 20 04/15/25 11:53 Blood Pressure 157/103 H 04/15/25 11:53 Pulse Oximetry 96 04/15/25 11:53 Oxygen Delivery Method Room Air 04/15/25 11:53 Tachycardic otherwise unremarkable not hypoxic Const Other: Alert and appears to be in no distress speaking in full sentences [facility] Other: Normocephalic atraumatic oral mucosa is moist Neck Other: Supple without cervical adenopathy or jugular venous distention Resp Other: Moderate wheezes, good air movement no rales Cardio Other: Regular rhythm and rate, tachycardic without murmur Skin Other: Warm and dry Neuro Other: Alert and oriented no gross deficits Extrem Other: No pedal edema no calf swelling or cords Course Orders Ordered: ED Orders 04/15/25 11:59 XR chest 1V Stat EKG-12 Lead Stat RT Consult Eval and Treat STAT 04/15/25 12:23 Complete Blood Count AUTO DIFF Stat Comprehensive Metabolic Panel Stat D Dimer Stat Lactate (Lactic Acid) Stat NT-proBNP (BNP-Adult 18+) Stat Prothrombin Time INR Stat Troponin I Stat 04/15/25 16:00 Hemoglobin and Hematocrit Stat Reevaluation(s) Reevaluation #1: Re-evaluated prior to discharge. Appears stable still has good air movement. Still mildly tachycardic. Vital Signs Vital signs: Vital Signs - 8 hr 04/15/25 11:53 04/15/25 12:07 04/15/25 12:10 Temperature 98.4 F Pulse Rate 110 H 98 H 100 H Respiratory Rate 20 17 14 Blood Pressure 157/103 H Pulse Oximetry 96 95 Oxygen Delivery Method Room Air 04/15/25 12:10 04/15/25 12:30 04/15/25 12:30 Temperature Pulse Rate 110 H Respiratory Rate 19 Blood Pressure 153/104 H 145/103 H Pulse Oximetry 93 Oxygen Delivery Method 04/15/25 13:00 04/15/25 13:00 04/15/25 13:30 Temperature Pulse Rate 97 H 109 H Respiratory Rate 13 12 Blood Pressure 153/95 H Pulse Oximetry 93 96 Oxygen Delivery Method 04/15/25 14:00 04/15/25 14:30 04/15/25 15:00 Temperature Pulse Rate 118 H 109 H 115 H Respiratory Rate 16 16 Blood Pressure Pulse Oximetry 97 93 94 Oxygen Delivery Method 04/15/25 15:30 04/15/25 15:52 04/15/25 15:52 Temperature Pulse Rate 109 H 117 H Respiratory Rate 19 34 H Blood Pressure 162/122 H Pulse Oximetry 94 95 Oxygen Delivery Method 04/15/25 16:00 Temperature Pulse Rate 106 H Respiratory Rate 23 Blood Pressure 162/100 H Pulse Oximetry 94 Oxygen Delivery Method MDM - SOB/Dyspnea Medical Records Medical records narrative: Reviewed pulmonary visit from March 27, switch to Trelegy started on a Z-Kannan and prednisone pulse, additionally she was tachycardic at that time. Lab Data Lab results narrative: Troponin normal, proBNP mildly elevated. No findings of heart failure on chest x-ray, D-dimer is normal 04/15/25 12:23 04/15/25 12:23 Labs: Lab Results 04/15/25 Range/Units 12:23 WBC 6.0 (4.5-11.0) X10^3/uL RBC 4.44 (4.0-5.2) X10^6/uL Hgb 13.4 (12.0-16.0) g/dL Hct 39.2 (36-46) % MCV 88.4 (80-100) fL MCH 30.2 (26-34) PG MCHC 34.2 (30-36) % RDW 14.1 (11.6-14.8) % Plt Count 289 (150-400) X10^3/uL Neut % (Auto) 75.2 H (50-75) % Lymph % (Auto) 15.2 L (25-40) % Cecil % (Auto) 6.7 (3-14) % Eos % (Auto) 2.1 (2-4) % Baso % (Auto) 0.8 (0-2) % Neut # (Auto) 4500 (6288-6438) /uL Lymph # (Auto) 900 L (5644-6823) /uL Cecil # (Auto) 400 (0-900) /uL Eos # (Auto) 100 (0-450) /uL Baso # (Auto) 0 (0-100) /uL PT 10.5 (9.4-12.5) SECONDS INR 0.9 (0.9-1.3) D-Dimer 370 (<500) ng/ml Sodium 130 L (137-145) mmol/L Potassium 4.3 (3.4-5.1) mmol/L Chloride 97 L (98-107) mmol/L Carbon Dioxide 21 L (22-32) mmol/L BUN 12 (7-17) mg/dL Creatinine 0.60 (0.52-1.04) mg/dL Estimated GFR > 60 (>60) mL/min BUN/Creatinine Ratio 20.0 (6-22) Glucose 98 (70-99) mg/dL Lactate 0.9 (0.7-2.1) mmol/L Calcium 9.8 (8.4-10.2) mg/dL Total Bilirubin 0.5 (0.2-1.3) mg/dL AST 22 (14-36) IU/L ALT 14 (<35) IU/L Alkaline Phosphatase 87 (38-126) U/L Troponin I < 0.012 (0.01-0.034) ng/mL NT-Pro-B Natriuret Pep 259 H (<125) pg/mL Total Protein 8.0 (6.3-8.2) g/dL Albumin 5.0 (3.5-5.0) g/dL Globulin 3.0 (1.7-4.1) g/dL Albumin/Globulin Ratio 1.7 (1.0-2.8) Imaging Data Chest x-ray: My Impression: Independently reviewed chest x-ray, no acute findings Radiologist's Impression: [address] [address] XRay Report Signed Patient: Latoya Estevez MR#: [id number] : 1955 Acct:[id number] Age/Sex: 69 / F Date of Service: 04/15/25 Loc: ED Accession Number: [id number] Procedure: XR chest 1V Ordering Provider: Augie Rico MD PROCEDURE: XR CHEST 1V INDICATIONS: Shortness of breath TECHNIQUE: One view of the chest was acquired. COMPARISON: [facility], CT, CT LOW DOSE LUNG CA SCREENING, 01/01/2025, 10:40. [facility], CR, XR CHEST 2V, 12/06/2023, 12:52. FINDINGS: Surgical changes and devices: None. Lungs and pleura: Lungs are clear. No pleural effusions or pneumothorax. Mediastinum: The cardiac contours are within normal limits. The aorta demonstrates calcification and tortuosity. Bones and chest wall: No suspicious bony lesions. S-shaped scoliotic curvature is seen. Age-appropriate bony degenerative changes are seen. Overlying soft tissues appear unremarkable. IMPRESSION: No acute portable chest abnormality is seen. Dictated by: Kiran Espino M.D. on 04/15/2025 at 11:31 Approved by: Kiran Espino M.D. on 04/15/2025 at 11:32 ECG Data Attestation: I personally reviewed and interpreted this ECG as follows: (Sinus rhythm at 97 there is a left bundle-branch block, no old EKG available for comparison) MDM Narrative Medical decision making narrative: 69-year-old female complaining of dyspnea. She has a history of COPD in his established with pulmonary. Not having fever does not have a leukocytosis I considered but do not suspect infection. She is not hypoxemic does not appear to be in respiratory failure. Tachycardia is noted, she is in sinus rhythm, normal troponin minimal elevation in proBNP does not appear to be acutely in heart failure. Has a normal D-dimer and course of dyspnea does not suggest pulmonary embolism. Given her report of persistent shortness of breath and wheezes on exam without evidence of infection I did start a steroid taper. She has a an appointment pulmonary in the next couple of days which I recommended she keep Discharge Plan Departure Patient Disposition: Home Clinical Impression: COPD exacerbation Activity Restrictions/Additional Instructions: Emergency department workup today is reassuring. I think it is safe to go home, I recommend that you take the tapering dose of prednisone that I prescribed, continue with your previous home medications and make sure you are getting adequate fluids. Follow up with pulmonology later this week as scheduled. If you are having increasing shortness of breath fevers or other acute symptoms recheck in the emergency department Prescriptions: New prednisone 10 mg tablet 10 mg PO DIRECTED Qty: 30 0RF Rx Instructions: Take 40 mg, 4 tablets daily for 3 days, then 30 mg, 3 tablets daily for 3 days then 20 mg daily for 3 days then 10 mg daily for 3 days. No Action Combivent Respimat 20-100 mcg/actuation mist 1 puff inhalation 4XD losartan 25 mg tablet 25 mg PO DAILY hydrocodone-acetaminophen [Blodgett] 10 MG/325 MG tablet 1 tab PO QID Qty: 0 prednisone 20 mg tablet 40 mg PO DAILY Qty: 10 0RF Trelegy Ellipta 200-62.5-25 mcg blister with device 1 inh inhalation DAILY Qty: 60 4RF Referrals: Ana Rosa Cooper MD [Primary Care Provider, Medical] Stand Alone Forms: Patient Portal/API
== END 2025-04-15 16:36 | disposition home or self-care (01) ==
PROVIDERS: Emergency Provider Emergency Medicine; PCP Family Medicine
DX: J44.1 Chronic obstructive pulmonary disease with (acute) exacerbation (principal); R00.0 Tachycardia, unspecified; I25.10 Atherosclerotic heart disease of native coronary artery without angina pectoris; Z87.891 Personal history of nicotine dependence
CPT/HCPCS: 36415; 71045; 80053; 83605; 83880; 84484; 85025; 85379; 85610; 93005; 93010; 99284